=== PATIENT | female | born 1940 | race Caucasian/White ===

== ENCOUNTER 2020-01-06 19:36 | Inpatient (IN) | payer MEDICARE ==
[~2020-01-06] VITALS: Ht 167.6 cm; Wt 80.7 kg
[2020-01-06 20:20] LABS: INTERNATIONAL NORMALIZED RATIO 1.11 (0.93-1.1); PROTHROMBIN TIME 11.4 Seconds (9.6-11.5)
--- NOTE | 2020-01-06 20:26 | NUR ---
Kia ramirez in [facility] - 01/06/20 at 6 by ELBA PT TRANSFERED FROM [facility]
--- NOTE | 2020-01-06 20:26 | NUR ---
PT HAD IMAGING DONE TODAY BECAUSE OF RECENT VISION AND MEMORY CHANGES, IMAGING SHOWED A BRAIN BLEED. PT TRANSFERED HERE FROM [facility]. PT A/O X3 AT CONTACT WITH MONTH AND TIME OFF. PT ARRIVED ON NICARDAMIN DRIP AT 3MG HR OF 25MG/250ML. PT B/P AT CONTACT 154/72. PT BEING ADMITED OVERNIGHT WITH SUMANTH BOBO TO SEE IN THE AM.
[2020-01-06] MEDS ORDERED: MAALOX/HYOSCYAMINE/LIDOCAINE 45 ML BTL ONE (20:35)
--- NOTE | 2020-01-06 20:36 | NUR ---
PT HAS C/O GERD AND IS REQUESTING MED, PROVIDER NOTIFIED
[2020-01-06] MEDS ORDERED: MAALOX/HYOSCYAMINE/LIDOCAINE 45 ML BTL PO ONE (21:00)
--- NOTE | 2020-01-06 21:29 | NUR ---
PT RESTING IN BED, PT HAS NO WANTS OR NEEDS AT THIS TIME. PT ON MONITOR AND RN WILL CONTINUE TO MONITOR PT VITALS
[2020-01-06] MEDS ORDERED: GABAPENTIN 300 MG CAPSULE PO PRN (22:00)
[2020-01-06] MEDS ORDERED: FAMOTIDINE 20 MG TABLET PO SCH (22:00)
[2020-01-06] MEDS ORDERED: INSTRUCTION SEE COMMENTS XX ONE (22:00)
[2020-01-06] MEDS ORDERED: ONDANSETRON 2MG/ML, 2ML IVPush PRN (22:00)
[2020-01-06] MEDS ORDERED: MELATONIN 5 MG TABLET PO PRN (22:00)
[2020-01-06] MEDS ORDERED: PROMETHAZINE 25 MG/ML, 1ML IM PRN (22:00)
[2020-01-06] MEDS ORDERED: morphine SULFATE 10 MG/ML, 1ML IVPush PRN (22:00)
[2020-01-06] MEDS ORDERED: ACETAMINOPHEN 325 MG TABLET PO PRN (22:00)
[2020-01-07 04:00] VITALS: BP 123/58
[2020-01-07 04:23] LABS: BASOPHILS # (AUTO) 0.01 x10^3/uL (0-0.1); BASOPHILS % (AUTO) 0 % (0-1); EOSINOPHILS # (AUTO) 0.07 x10^3/uL (0-0.4); EOSINOPHILS % (AUTO) 1 % (1-7); LYMPHOCYTES # (AUTO) 1.14 x10^3/uL (1-3.4); LYMPHOCYTES % (AUTO) 15 % (22-44); MD NO; MEAN CORPUSCULAR HEMOGLOBIN 31.8 pg (27.0-34.8); MEAN CORPUSCULAR HGB CONC 33.7 g/dL (32.4-35.8); MEAN PLATELET VOLUME 8.5 fL (7.4-10.4); MONOCYTES # (AUTO) 0.74 x10^3/uL (0.2-0.8); MONOCYTES % (AUTO) 10 % (2-9); NEUTROPHILS % (AUTO) 75 % (42-75); PLATELET COUNT 165 x10^3/uL (130-400); RED BLOOD COUNT 5.18 x10^6/uL (3.82-5.3); RED CELL DISTRIBUTION WIDTH 13.1 % (9.6-15.2)
[2020-01-07 04:29] LABS: ANION GAP 5 mmol/L (5-15); CALCIUM 9.2 mg/dL (8.5-10.1); CHLORIDE 107 mmol/L (98-107); CHOLESTEROL, TOTAL 177 mg/dL (140-239); CREATININE 0.61 mg/dL (0.55-1.02); TRIGLYCERIDES 76 mg/dL (50-200); VLDL CHOLESTEROL 15 mg/dL (0-25)
[2020-01-07 04:31] LABS: CHOL/HDL RATIO 2.8; HDL CHOL % 36 % (28-40); HDL CHOLESTEROL (DIRECT) 64 mg/dL (40-60); LDL CHOLESTEROL,CALCULATED 98 mg/dL (54-169); LDL/HDL RATIO 1.5 (0.5-3.0)
[2020-01-07] MEDS ORDERED: PARO10TA3 PO (05:04)
[2020-01-07] MEDS ORDERED: ERYT1OIN5 EACHEYE (05:04)
[2020-01-07] MEDS ORDERED: [UNRECOGNIZED DRUG - CODE] PO (05:04)
[2020-01-07] MEDS ORDERED: GADOTERATE 7.5 MMOL/15 ML SYR ONE (06:09)
[2020-01-07] MEDS ORDERED: ENALAPRILAT 1.25 MG/ML, 2ML IV PRN (08:00)
[2020-01-07] MEDS: SENNA/DOCUSATE TABLET PO SCH (09:00)
[2020-01-07] MEDS: PAROXETINE 10 MG TABLET PO SCH (10:39)
[2020-01-07] MEDS: THYROID 30 MG TABLET PO SCH (10:39)
--- NOTE | 2020-01-07 13:08 | NUR ---
Patient would benefit from acute rehab Addendum: 01/07/20 at [address] Amended: Links added.
[2020-01-07] MEDS: ATORVASTATIN 80 MG TABLET PO SCH (20:11)
[2020-01-08 04:00] VITALS: BP 126/64
[2020-01-08] MEDS: THYROID 30 MG TABLET PO SCH (08:54)
[2020-01-08] MEDS: PAROXETINE 10 MG TABLET PO SCH (08:54)
[2020-01-08] MEDS: SENNA/DOCUSATE TABLET PO SCH (08:54)
[2020-01-08] MEDS: ATORVASTATIN 80 MG TABLET PO SCH (20:07)
[2020-01-09 01:51] VITALS: BP 112/75
[2020-01-09 04:57] VITALS: BP 128/85
[2020-01-09 06:19] VITALS: BP 141/79
[2020-01-09] MEDS: SENNA/DOCUSATE TABLET PO SCH (09:00)
[2020-01-09] MEDS: LISINOPRIL 10 MG TABLET PO SCH (09:10)
[2020-01-09] MEDS: THYROID 30 MG TABLET PO SCH (09:10)
[2020-01-09] MEDS: PAROXETINE 10 MG TABLET PO SCH (09:10)
[2020-01-09 09:28] LABS: FREE T4 (FREE THYROXINE) 1.18 ng/dL (0.76-1.46)
[2020-01-09] MEDS ORDERED: CALCIUM CARBONATE 500 MG TAB.CHEW ONE (12:04)
[2020-01-09] MEDS: CALCIUM CARBONATE 500 MG TAB.CHEW PO PRN ×3 (12:07→20:17)
[2020-01-09 12:56] VITALS: BP 126/61
[2020-01-09 16:00] VITALS: BP 122/65
[2020-01-09] MEDS ORDERED: OMNIPAQUE 350 MG/ML, 100ML BOTTLE ONE (18:29)
[2020-01-09 19:16] VITALS: BP 128/71
[2020-01-09] MEDS: ATORVASTATIN 80 MG TABLET PO SCH (20:08)
[2020-01-10 01:00] VITALS: BP 118/71
[2020-01-10 04:30] VITALS: BP 100/65
[2020-01-10 07:45] VITALS: BP 118/75
[2020-01-10 07:46] VITALS: BP_SYST 110; BP_SYST 116; BP_DIAS 75
[2020-01-10] MEDS: THYROID 30 MG TABLET PO SCH (09:22)
[2020-01-10] MEDS: PAROXETINE 10 MG TABLET PO SCH (09:22)
[2020-01-10] MEDS: LISINOPRIL 10 MG TABLET PO SCH (09:22)
[2020-01-10] MEDS: SENNA/DOCUSATE TABLET PO SCH (09:22)
[2020-01-10] MEDS: CALCIUM CARBONATE 500 MG TAB.CHEW PO PRN (09:43)
[2020-01-10] MEDS ORDERED: LISI-167 PO (11:25)
[2020-01-10] MEDS ORDERED: ACET325T26 PO (11:25)
[2020-01-10] MEDS ORDERED: ATOR-2 PO (11:25)
[2020-01-10] MEDS ORDERED: FAMO10TA90 PO (11:25)
[2020-01-10] MEDS ORDERED: CALC200T24 PO (11:25)
[2020-01-10] MEDS ORDERED: FAMOTIDINE 10 MG TAB PO SCH (11:30)
[2020-01-10 12:02] VITALS: BP 111/64
== END 2020-01-10 14:10 | DRG 64 ==
LOC: ED 19:55 → EDIP 20:03 → ED 20:19 → CCU 21:59 → 4WST 01-08 23:16
PROVIDERS: ADMIT Family Medicine; ATTEND Internal Medicine
DX: I61.9 Nontraumatic intracerebral hemorrhage, unspecified (principal); G93.41 Metabolic encephalopathy; I16.1 Hypertensive emergency; R41.4 Neurologic neglect syndrome; R47.01 Aphasia; C44.91 Basal cell carcinoma of skin, unspecified; E03.9 Hypothyroidism, unspecified; F32.9 Major depressive disorder, single episode, unspecified; F41.9 Anxiety disorder, unspecified; Z60.2 Problems related to living alone; K21.9 Gastro-esophageal reflux disease without esophagitis; Z80.7 Family history of other malignant neoplasms of lymphoid, hematopoietic and related tissues; Z90.49 Acquired absence of other specified parts of digestive tract; Z86.73 Personal history of transient ischemic attack (TIA), and cerebral infarction without residual deficits; Z85.828 Personal history of other malignant neoplasm of skin; Z87.891 Personal history of nicotine dependence; Z88.5 Allergy status to narcotic agent; Z20.828 Contact with and (suspected) exposure to other viral communicable diseases
CPT/HCPCS: 36415; 70450; 70496; 70498; 70553; 80048; 80061; 84439; 84443; 84481; 85025; 85610; 85730; 87081; 87635; 93005; 93306; 99291; G0378; Q9967; 92523-GN; A9575; J7050